=== PATIENT | female | born 1945 | race Caucasian/White ===

== ENCOUNTER 2021-06-04 02:28 | Inpatient (IN) | payer MEDICARE, OTHER ==
[~2021-06-04] VITALS: Ht 144.8 cm; Wt 52.2 kg
[2021-06-04 03:47] LABS: HEMOGLOBIN 13.1 gm/dl (12.3-15.3); RED BLOOD COUNT 4.19 M/UL (4.00-5.10); WHITE BLOOD COUNT 9.3 K/UL (4.5-11.0)
[2021-06-04 07:43] LABS: HEMOGLOBIN 12.6 gm/dl (12.3-15.3); RED BLOOD COUNT 4.2 M/UL (4.00-5.10); WHITE BLOOD COUNT 10.7 K/UL (4.5-11.0)
[2021-06-04] MEDS ORDERED: AMLODIPINE BESYL5 MG PO (11:14)
[2021-06-04] MEDS ORDERED: PLAVIX 75 MG TA75 MG PO (11:15)
[2021-06-04] MEDS ORDERED: ATORVASTATIN CA80 MG PO (11:15)
[2021-06-04] MEDS ORDERED: ASPIRIN EC500 MG PO (11:15)
[2021-06-04] MEDS ORDERED: CETIRIZINE HCL10 MG PO (11:15)
[2021-06-04] MEDS ORDERED: LISINOPRIL20 MG PO (11:16)
[2021-06-04] MEDS ORDERED: ESCITALOPRAM OX10 MG PO (11:16)
[2021-06-04] MEDS ORDERED: DONEPEZIL HCL5 MG PO (11:16)
--- NOTE | 2021-06-04 19:53 | NUR ---
SHIFT ASSESSMENT NOT ABLE TO BE PERFORMED ATT D/T PATIENT STILL IN SURGERY.
[2021-06-04 20:36] LABS: HEMOGLOBIN 12.9 gm/dl (12.3-15.3); RED BLOOD COUNT 4.09 M/UL (4.00-5.10); WHITE BLOOD COUNT 12.1 K/UL (4.5-11.0)
--- NOTE | 2021-06-04 21:16 | NUR ---
PT ARRIVED BACK TO FLOOR FROM SURGERY AT 2100 ON 06/04/21.
--- NOTE | 2021-06-05 03:01 | NUR ---
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 WCMELANIA
[2021-06-05 05:07] LABS: HEMOGLOBIN 11.5 gm/dl (12.3-15.3); RED BLOOD COUNT 3.71 M/UL (4.00-5.10); WHITE BLOOD COUNT 9.4 K/UL (4.5-11.0)
[2021-06-06 05:14] LABS: HEMOGLOBIN 9.6 gm/dl (12.3-15.3); WHITE BLOOD COUNT 8.1 K/UL (4.5-11.0)
[2021-06-06 05:16] LABS: RED BLOOD COUNT 3.1 M/UL (4.00-5.10)
[2021-06-07 08:00] LABS: BUN/CREATININE RATIO 17 (0-10)
[2021-06-08 07:39] LABS: HEMOGLOBIN 9.5 gm/dl (12.3-15.3); RED BLOOD COUNT 3.14 M/UL (4.00-5.10); WHITE BLOOD COUNT 8.4 K/UL (4.5-11.0)
[2021-06-08 08:33] LABS: BUN/CREATININE RATIO 21 (0-10)
[2021-06-08] MEDS ORDERED: ENOXAPARIN40 MG/0.4 SC (17:30)
[2021-06-08] MEDS ORDERED: THERAGRAN M TAB1 EA PO (17:30)
[2021-06-08] MEDS ORDERED: LIPITOR TAB 2020 MG PO (17:30)
[2021-06-08] MEDS ORDERED: METOPROLOL SUCC25 MG PO (17:30)
[2021-06-08] MEDS ORDERED: HYDROCODON-ACE1 EAC2 PO (17:30)
== END 2021-06-09 13:34 | DRG 522 ==
LOC: ER1 02:28 → CDU 04:22 → M/S 04:22
PROVIDERS: Emergency Medicine; Internal Medicine Infectious Disease; Orthopaedic Surgery; Physician Assistant; ADMIT Internal Medicine
PROC: B24BZZZ Ultrasonography of Heart with Aorta (ICD-10-PCS; 2021-06-04)
PROC: 0SRR0JA Replacement of Right Hip Joint, Femoral Surface with Synthetic Substitute, Uncemented, Open Approach (ICD-10-PCS; principal; 2021-06-04 20:15)
DX: S72.011A Unspecified intracapsular fracture of right femur, initial encounter for closed fracture (principal); N17.9 Acute kidney failure, unspecified; D62 Acute posthemorrhagic anemia; Z20.822 Contact with and (suspected) exposure to COVID-19; I25.10 Atherosclerotic heart disease of native coronary artery without angina pectoris; G30.1 Alzheimer's disease with late onset; F17.210 Nicotine dependence, cigarettes, uncomplicated; I08.3 Combined rheumatic disorders of mitral, aortic and tricuspid valves; E78.5 Hyperlipidemia, unspecified; F02.80 Dementia in other diseases classified elsewhere, unspecified severity, without behavioral disturbance, psychotic disturbance, mood disturbance, and anxiety; R73.9 Hyperglycemia, unspecified; W01.0XXA Fall on same level from slipping, tripping and stumbling without subsequent striking against object, initial encounter; I10 Essential (primary) hypertension; Z95.1 Presence of aortocoronary bypass graft; Y92.009 Unspecified place in unspecified non-institutional (private) residence as the place of occurrence of the external cause; Y99.9 Unspecified external cause status
CPT/HCPCS: ECHO; 36415; 51702; 71045; 72170; 73502; 73552; 73660; 80048; 80053; 83036; 83735; 85025; 85610; 85730; 86850; 86900; 86901; 93005; 93306; 94760; 96374; 96375; 97110-GP-CQ; 97116; 97116-GP-CQ; 97161; 97166; 97530; 97530-GP-CQ; 99285; C1776; J0690; J1100; J1650; J2001; J2250; J2270; J2405; J2704; J2795; J3010; J3370; J7030; J7120; U0002

== ENCOUNTER → 2021-10-22 | Outpatient (CLI) | payer OTHER ==
[~2021-10-22] MED LIST: AMLODIPINE BESYL5 MG PO; ASPIRIN EC500 MG PO; ATORVASTATIN CA80 MG PO; CETIRIZINE HCL10 MG PO; DONEPEZIL HCL5 MG PO; ENOXAPARIN40 MG/0.4 SC; ESCITALOPRAM OX10 MG PO; HYDROCODON-ACE1 EAC2 PO; LIPITOR TAB 2020 MG PO; LISINOPRIL20 MG PO; METOPROLOL SUCC25 MG PO; PLAVIX 75 MG TA75 MG PO; THERAGRAN M TAB1 EA PO
[2021-10-22 14:00] LABS: HEMOGLOBIN 13.6 gm/dl (12.3-15.3); RED BLOOD COUNT 4.42 M/UL (4.00-5.10); WHITE BLOOD COUNT 7.8 K/UL (4.5-11.0)
== END ==
LOC: LAB 13:39
PROVIDERS: Family Medicine
DX: K52.9 Noninfective gastroenteritis and colitis, unspecified (principal)
CPT/HCPCS: 36415; 80053; 85025; 87045; 87046; 87177; 87209; 89055

== ENCOUNTER → 2021-10-28 | Outpatient (CLI) | payer OTHER | LOC: LAB 12:48 | DX: I63.9 Cerebral infarction, unspecified (principal) | CPT/HCPCS: 36415; 80061 ==